=== PATIENT | male | born 1990 | race African-American/Black ===

== ENCOUNTER 2018-04-21 12:03 | Emergency (ER) | payer MEDICAID ==
[~2018-04-21] VITALS: Ht 188 cm; Wt 70.0 kg
[2018-04-21 12:16] VITALS: BP 132/86
== END 2018-04-21 14:38 | disposition home or self-care (01) ==
LOC: ER 12:03
DX: J45.909 Unspecified asthma, uncomplicated (principal); R03.0 Elevated blood-pressure reading, without diagnosis of hypertension; Z76.0 Encounter for issue of repeat prescription; Z79.51 Long term (current) use of inhaled steroids; Z88.6 Allergy status to analgesic agent
CPT/HCPCS: 99283

== ENCOUNTER 2018-04-25 23:09 | Emergency (ER) | payer MEDICAID ==
[~2018-04-25] VITALS: Ht 188 cm; Wt 74.6 kg
[2018-04-26] MEDS ORDERED: ALBUTEROL (0.083%) 2.5MG/3ML NEB HHN STA (02:32)
[2018-04-26] MEDS ORDERED: IPRATROPIUM BROMIDE (0.02%) 0.5MG/2.5ML NEB HHN STA (02:32)
[2018-04-26] MEDS ORDERED: BACITRACIN ZINC OINT UDPKT TOP ONE (02:45)
[2018-04-26] MEDS ORDERED: MORPHINE SULFATE 10 MG/ML CPJ IM ONE (02:45)
[2018-04-26] MEDS ORDERED: LIDOCAINE HCL/PF 1% 10 MG/ML 5ML VIAL IJ ONE (02:45)
[2018-04-26] MEDS ORDERED: TETANUS, DIPHTHERIA, PERTUSSIS VAC/PF 0.5ML (>7YR OLD) IM ONE (02:45)
[2018-04-26 05:58] VITALS: BP 128/76
== END 2018-04-26 06:01 | disposition home or self-care (01) ==
LOC: ER 23:09
DX: S61.215A Laceration without foreign body of left ring finger without damage to nail, initial encounter (principal); J45.909 Unspecified asthma, uncomplicated; W26.0XXA Contact with knife, initial encounter; Y93.89 Activity, other specified; Y92.89 Other specified places as the place of occurrence of the external cause; Y99.8 Other external cause status; Z88.6 Allergy status to analgesic agent
CPT/HCPCS: 71045; 73130; 90471; 90715; 94640; 96372; 99284; J2270; J3490; J7611; Z7610

== ENCOUNTER 2018-05-03 14:25 | Emergency (ER) | payer MEDICAID ==
[~2018-05-03] VITALS: Ht 190.5 cm; Wt 73.0 kg
[2018-05-03 14:54] VITALS: BP 101/65
== END 2018-05-03 19:41 | disposition left against medical advice (07) ==
LOC: ER 14:25
DX: S61.412D Laceration without foreign body of left hand, subsequent encounter (principal); J45.909 Unspecified asthma, uncomplicated; Z53.21 Procedure and treatment not carried out due to patient leaving prior to being seen by health care provider; X58.XXXD Exposure to other specified factors, subsequent encounter

== ENCOUNTER 2021-12-20 04:14 | Emergency (ER) | payer MEDICAID ==
[~2021-12-20] VITALS: Ht 175.3 cm; Wt 73.0 kg
[2021-12-20] MEDS ORDERED: MORPHINE SULFATE 4 MG/ML CPJ (NOT FOR IM USE) IV ONE (04:15)
[2021-12-20] MEDS ORDERED: SODIUM CHLORIDE 0.9% 1,000 ML IV ONE (04:15)
[2021-12-20] MEDS ORDERED: ONDANSETRON HCL 4MG/2ML INJ IV ONE (04:15)
[2021-12-20 04:40] LABS: BASOPHILS % 1.1 % (0.0-2.0); EOSINOPHILS % 6.5 % (0.0-5.0); HEMATOCRIT. 47.6 % (42.0-52.0); HEMOGLOBIN. 16.1 g/dL (14.0-18.0); LYMPHOCYTES % 34.5 % (20.0-50.0); MEAN CORPUSCULAR HEMOGLOBIN 31.4 pg (28.0-32.0); MEAN CORPUSCULAR VOLUME 92.6 fL (80.0-94.0); MEAN PLATELET VOLUME 7.8 fl (7.4-10.4); MONOCYTES % 6.4 % (2.0-8.0); NEUTROPHILS % 51.5 % (40.0-76.0); PLATELET 346 x1000/uL (130-400); RED BLOOD CELL COUNT 5.14 mill/uL (4.7-6.1); RED CELL DISTRIBUTION WIDTH 12.6 % (11.6-14.6)
[2021-12-20 04:57] LABS: CHLORIDE 108 mEq/L (98-107)
[2021-12-20] MEDS ORDERED: CEFAZOLIN 1000MG PREMIX 50 ML IV ONE (05:15)
[2021-12-20] MEDS ORDERED: MORPHINE SULFATE 4 MG/ML CPJ (NOT FOR IM USE) IV NR (05:30)
[2021-12-20] MEDS ORDERED: ONDANSETRON HCL 4MG/2ML INJ IV NR (06:00)
[2021-12-20] MEDS ORDERED: CEFAZOLIN 1000MG PREMIX 50 ML IV NR (06:00)
[2021-12-20] MEDS ORDERED: LIDOCAINE HCL/EPINEPHRINE 1%-EPI 1:100,000 50 ML VIAL INFIL ONE (06:45)
[2021-12-20] MEDS ORDERED: AMOX-424 MT (07:02)
[2021-12-20 09:00] VITALS: BP 130/68
== END 2021-12-20 09:10 | disposition home or self-care (01) ==
LOC: ER 04:14
DX: S21.122A Laceration with foreign body of left front wall of thorax without penetration into thoracic cavity, initial encounter (principal); E87.6 Hypokalemia; F12.90 Cannabis use, unspecified, uncomplicated; X95.9XXA Assault by unspecified firearm discharge, initial encounter; Y93.89 Activity, other specified; Y92.480 Sidewalk as the place of occurrence of the external cause; Z88.6 Allergy status to analgesic agent
CPT/HCPCS: 36415; 71045; 71275; 74174; 80053; 85025; 86850; 86900; 86901; 96361; 96365; 96375; 99291; J0690; J2270; J7030; Z7610